=== PATIENT | female | born 1985 | race Caucasian/White ===

== ENCOUNTER 2022-07-08 11:18 | Emergency (ER) | payer BC, SELFPAY ==
[2022-07-08 12:02] VITALS: BP 149/84; PULSE 110; RESP 16; TEMP 36.6; O2SAT 100
[2022-07-08 12:32] LABS: Basophils Absolute Auto 0.1 K/mm3 (0.0-0.1); Basophils Percent Auto 0.8 % (0.2-1.2); Eosinophils Absolute Auto 0.1 K/mm3 (0-0.3); Eosinophils Percent Auto 1.1 % (0-4.4); Hematocrit 37.7 % (37.0-47.0); Immature Granulocyte Absolute 0.02 K/mm3 (0.00-0.031); Immature Granulocyte Percent A 0.3 % (0-0.5); Lymphocytes Absolute Auto 1.82 K/mm3 (0.9-3.2); Lymphocytes Percent Auto 27.7 % (18.3-44.2); Mean Corpuscular HGB Conc 31.8 g/dl (32-36); Mean Corpuscular Hemoglobin 26.7 pg (26-34); Mean Corpuscular Volume 83.8 fl (80-100); Mean Platelet Volume 9.5 fl (7.4-10.4); Monocytes Absolute Auto 0.6 K/mm3 (0.1-0.6); Monocytes Percent Auto 8.4 % (2.6-8.5); Neutrophils Absolute Auto 4.1 K/mm3 (1.3-6.7); Neutrophils Percent Auto 61.7 % (45.5-73.1); Platelet Count Result 373 k/mm3 (150-375); White Blood Count 6.6 K/mm3 (4.5-10.0)
[2022-07-08 16:00] VITALS: BP 124/87; PULSE 102; RESP 16
[2022-07-08 16:03] VITALS: BP 115/78; PULSE 90
[2022-07-08 16:05] VITALS: BP 123/91; PULSE 91
[2022-07-08 16:06] VITALS: BP 125/89; PULSE 98
--- NOTE | 2022-07-08 16:06 | ED.FEMALEGU ---
HPI - Female Genitourinary General Chief complaint: Vaginal Bleeding Stated complaint: vaginal bleeding Time Seen by Provider: 07/08/22 16:05 Source: patient and family Mode of arrival: ambulatory Limitations: no limitations History of Present Illness HPI Narrative: Patient is a 37 years old white female presents with heavy bleeding started last evening. Patient stating me that she been passing large blood clots with abdominal cramps. Last menstrual period June 06. Her vaginal bleeding last night was the expected menstrual cycle. She denies any lightheadedness, dizziness, headache, shortness of breath. Patient is 2 para 1 1 had vasectomy Related Data Home Medications Medication Instructions Recorded Confirmed No Home Medications 07/08/22 07/08/22 Allergies Allergy/AdvReac Type Severity Reaction Status Date / Time No Known Allergies Allergy Verified 07/08/22 15:59 Review of Systems Review of Systems: All systems reviewed & are unremarkable except as noted in HPI and below PMFSH Social History Social History Smoking status: Never smoker Gender identity (if verbalized by the patient): Female Exam Narrative: General appearance: Well-developed, well-nourished Skin: Normal color Head: Normocephalic, nontraumatic Eyes: Clear conjunctiva ENT: Oropharynx normal, ears normal, nose normal Neck: Supple, nontender Chest and respiratory: Airway patent, no respiratory distress, no accessory muscle use Heart: Regular rate/rhythm Abdomen: Soft, nontender, no organomegaly, quiet bowel sounds Vascular: Normal peripheral pulses, normal capillary refill. Musculoskeletal: Normal range of motion, nontender back Neurologic: Alert and oriented ?3, CONVERTING OPERATOR is normal as tested, no gross motor deficit : Speculum Exam - Vagina: normal appearance of the vagina and vaginal bleeding (Scant blood required 2 long Q-tip to dry the whole vaginal pouch) Speculum Exam - Cervix: normal appearance of the cervix and Cervical os closed Bimanual Exam- Adnexa, other: no masses and No adnexal tenderness Course Reevaluation(s) Reevaluation #1: Patient is still feeling okay, denying any symptoms at this time, no active vaginal bleeding during her presents in the emergency room. Date: 07/08/22 Time: 17:57 Vital Signs Vital signs: Vital Signs Temperature 36.6 C 07/08/22 12:02 Pulse Rate 110 H 07/08/22 12:02 Respiratory Rate 16 07/08/22 12:02 Blood Pressure 149/84 H 07/08/22 12:02 Pulse Oximetry 100 07/08/22 12:02 Temperature 36.6 C 07/08/22 12:02 Pulse Rate 102 H 07/08/22 16:00 Respiratory Rate 16 07/08/22 16:00 Blood Pressure 124/87 07/08/22 16:00 Pulse Oximetry 100 07/08/22 12:02 MDM - Female Genitourinary MDM Narrative Medical decision making narrative: Patient presents with heavy vaginal bleeding started last night, expected menstrual cycle last night, patient denies any lightheadedness, dizziness, headache, shortness of breath. Physical examination is unremarkable, vaginal examination showed scant blood in the vaginal pouch, no active bleeding. Labs, orthostatic blood pressure, serum showed no abnormalities patient is hemodynamically stable Patient can go home to follow-up with her [employer] or Dr. Mercado. Discussed with Dr. Martínez. the pt was discharged to home.the pt,s condition upon discharge was fair,education was provided to the pt in reference to the final impression,discharge study results,treatment,prognosis and need for follow up . Differential Diagnosis Differential diagnosis: Likely other (Dysfunctional uterine bleeding,
[2022-07-08] MEDS: SODIUM CHLORIDE 0.9% IV 1,000 ML 999 ML IV CONT ×2 (16:15→16:30)
--- NOTE | 2022-07-08 16:15 | PC.NURSE ---
pt states bleeding has decreased. at bedside. ns bolus infusing wide open
[2022-07-08 16:53] LABS: SPREG INTERNAL CONTROL Positive; Serum Qual hCG Negative
[2022-07-08 17:11] LABS: Beta HCG Quantitative < 2.39 mIU/ML
[2022-07-08 18:42] VITALS: BP 129/85; PULSE 96; RESP 18; O2SAT 99
== END 2022-07-08 18:44 | disposition home or self-care (01) ==
PROVIDERS: Emergency Medicine; Emergency Provider Emergency Medicine
DX: N92.1 Excessive and frequent menstruation with irregular cycle (principal)
CPT/HCPCS: 36415; 84702; 84703; 85025; 96360; 96361; 99284; J7030